=== PATIENT | male | born 1990 | race Two or more races ===

== ENCOUNTER 2017-01-09 18:43 | Emergency (ER) | payer MEDICAID ==
[~2017-01-09] VITALS: Ht 167.6 cm; Wt 85.7 kg
--- NOTE | 2017-01-09 19:20 | Emergency Room Report ---
History of Present Illness General Chief Complaint: Upper Extremity Injury Source: Patient Present Illness HPI 26 YO male presents to the ED c/o that a cat attacked him yesterday evening, pt. reports scratches and bites to right wrist, and hand. pt. states swelling and 5/10 pain to right 5th and 4th digits with erythema about the wounds and the hand. pt. states he's been washing wounds frequently, does not know when his last tetanus vaccination was. denies fevers, chills, itching, swelling of the lips or tongue, denies wheezing , rashes or abdominal pain. Denies CP, Palpitations, LOC, AMS, dizziness, Changes in Vision, Sensation, paresthesias, or a sudden severe headache. Allergies: Coded Allergies: No Known Allergies (Unverified , 01/09/17) Patient History Past Medical History: see triage record Past Surgical History: none Pertinent Family History: none Reviewed Nursing Documentation: PMH: Agreed, PSxH: Agreed Review of Systems All Other Systems: negative except mentioned in HPI Physical Exam Vital Signs Date Time Temp Pulse Resp B/P Pulse Ox O2 Delivery O2 Flow Rate FiO2 01/09/17 18:54 98.4 97 18 149/93 99 Room Air Sp02 EP Interpretation: reviewed, normal General Appearance: no apparent distress, alert, GCS 15, non-toxic Head: normocephalic, atraumatic Eyes: bilateral eye PERRL, bilateral eye normal inspection ENT: hearing grossly normal, normal pharynx, no angioedema, normal voice Neck: full range of motion, supple/symm/no masses Respiratory: lungs clear, normal breath sounds, speaking full sentences Cardiovascular #1: regular rate, rhythm, no edema, normal capillary refill Cardiovascular #2: 2+ radial (R), 2+ radial (L) Musculoskeletal: back normal, gait/station normal, normal range of motion, non- tender, swelling, tender - TTP to the lateral right wrist, and the base of the right 5th and 4th digits, erythema noted, increased temperature to palpation, mild swelling, no lymphangitis noted ,no palpable LAD. Neurologic: alert, oriented x3, responsive, motor strength/tone normal, sensory intact, speech normal Psychiatric: judgement/insight normal, memory normal, mood/affect normal Skin: normal color, no rash, warm/dry, well hydrated, laceration - superficial lacerations, and three small puncture wounds less than 0.4cm in size to lateral right wrist, and the base of the right 5th and 4th digits, erythema noted, increased temperature to palpation, mild swelling, no lymphangitis noted ,no palpable LAD. Lymphatic: no adenopathy Medical Decision Making PA Attestation is my supervising Physician whom patient management has been discussed with. Diagnostic Impression: Primary Impression: Cellulitis Qualified Codes: L03.113 - Cellulitis of right upper limb Additional Impression: Cat scratch of hand Qualified Codes: S60.511A - Abrasion of right hand, initial encounter; W55.03XA - Scratched by cat, initial encounter ER Course 26 YO male presents to the ED c/o that a cat attacked him yesterday evening, pt. reports scratches and bites to right wrist, and hand. pt. states swelling and 5/10 pain to right 5th and 4th digits with erythema about the wounds and the hand. pt. states he's been washing wounds frequently, does not know when his last tetanus vaccination was. denies fevers, chills, itching, swelling of the lips or tongue, denies wheezing , rashes or abdominal pain. Denies CP, Palpitations, LOC, AMS, dizziness, Changes in Vision, Sensation, paresthesias, or a sudden severe headache. Ddx considered but are not limited to Cellulitis, rabies, fracture, neurovascular compromise of extremity. Vital signs: are WNL, pt. is afebrile H&PE are most consistent with cat scratch and bite of the right wrist/hand with mild infection. ORDERS: none required at this time, the diagnosis is clinical ED INTERVENTIONS: -Wound cleaning. -Tetanus vaccination is administered. - Augmentin PO DISCHARGE: At this time pt. is stable for d/c to home. Will provide printed patient care instructions, and any necessary prescriptions. Care plan and follow up instructions have been discussed with the patient prior to discharge. * Augmentin TID x 7 days. Last Vital Signs Date Time Temp Pulse Resp B/P Pulse Ox O2 Delivery O2 Flow Rate FiO2 01/09/17 18:54 98.4 97 18 149/93 99 Room Air Disposition: HOME, SELF-CARE Condition: Stable Scripts Ibuprofen* (MOTRIN*) 600 Mg Tablet 600 MG ORAL THREE TIMES A DAY, #30 TAB 0 Refills Prov: Mihaela Sandra 01/09/17 Amoxicillin/Potassium Clav 875-125* (AUGMENTIN 875-125 TABLET*) 1 Each Tablet 1 TAB ORAL TWICE A DAY for 7 Days, #14 TAB Prov: Mihaela Sandra 01/09/17 Patient Instructions: Cellulitis Additional Instructions: Take medications as directed. Follow up with a Primary Care Provider in 3-5 days, even if your symptoms have resolved. --Please review list of primary care clinics, if you do not already have a primary care provider Return sooner to ED if new symptoms occur, or current symptoms become worse. - Please note that this Emergency Department Report was dictated using [employer] pit boss technology software, occasionally this can lead to erroneous entry secondary to interpretation by the dictation equipment. Mihaela Sandra Jan 09, 2017 19:20
[2017-01-09] MEDS ORDERED: Tetanus/Diptheria/Pertussis Vaccine 0.5ml Syr IM ONE (19:30)
[2017-01-09] MEDS ORDERED: IBUPROFEN600 MG ORAL (19:32)
[2017-01-09] MEDS ORDERED: AUGMENTIN 875-1 EAC1 ORAL (19:32)
[2017-01-09 19:48] VITALS: BP_SYST 131; BP_SYST 149; BP_DIAS 88; BP_DIAS 93
== END 2017-01-09 19:50 | disposition home or self-care (01) ==
LOC: EMR 19:28
DX: L03.113 Cellulitis of right upper limb (principal); S60.511A Abrasion of right hand, initial encounter; W55.03XA Scratched by cat, initial encounter; Y93.9 Activity, unspecified; Y92.9 Unspecified place or not applicable; Z23 Encounter for immunization
CPT/HCPCS: 90471; 90715; 96372; 99284

== ENCOUNTER 2018-03-26 15:11 | Emergency (ER) | payer MEDICAID, OTHER ==
[~2018-03-26] VITALS: Ht 165.1 cm; Wt 77.1 kg
[~2018-03-26 15:11] MED LIST: AUGMENTIN 875-1 EAC1 ORAL; IBUPROFEN600 MG ORAL
[2018-03-26 15:23] VITALS: BP 140/99
--- NOTE | 2018-03-26 15:29 | Emergency Room Report ---
History of Present Illness General Chief Complaint: Medication Refill Source: Patient Present Illness HPI 27 year-old male patient presents ER brought in by police for medical clearance for incarceration. Patient reports that his throat is "parched" and that he needs some water. Patient complaining of being thirsty and "gagging" from being thirsty. Reports that he is not taking any food or had any new foods in his diet. Reports history of marijuana use. Denies throwing up. Denies abdominal pain. Reports history of GERD, does not take any medications for GERD , declines all medications. Denies history. denies fever, chest pain, shortness of breath. Allergies: Coded Allergies: No Known Allergies (Unverified , 01/09/17) Patient History Past Medical History: see triage record Reviewed Nursing Documentation: PMH: Agreed; PSxH: Agreed Nursing Documentation-PMH Past Medical History: No Stated History Review of Systems All Other Systems: negative except mentioned in HPI Physical Exam Vital Signs Date Time Temp Pulse Resp B/P (MAP) Pulse Ox O2 Delivery O2 Flow Rate FiO2 03/26/18 15:06 98.4 99 18 140/99 100 Room Air 98.4 Sp02 EP Interpretation: reviewed, normal General Appearance: well appearing, no apparent distress, alert, GCS 15, non- toxic Head: normocephalic, atraumatic Eyes: bilateral eye normal inspection, bilateral eye PERRL ENT: hearing grossly normal, normal pharynx, no angioedema, normal voice, TMs + canals normal, uvula midline, moist mucus membranes Neck: full range of motion Respiratory: lungs clear, normal breath sounds, no rhonchi, no respiratory distress, no accessory muscle use, no wheezing, speaking full sentences, other - no stridor Cardiovascular #1: regular rate, rhythm, no edema Gastrointestinal: non tender, soft, no mass, non-distended, no guarding, no rebound Genitourinary: no CVA tenderness Musculoskeletal: back normal, digits/nails normal, gait/station normal, normal range of motion, non-tender Neurologic: alert, oriented x3, responsive, motor strength/tone normal, sensory intact Skin: no rash Lymphatic: no adenopathy Medical Decision Making PA Attestation Dr. Quinonez is my supervising Physician whom patient management has been discussed with. Diagnostic Impression: Primary Impression: Medical clearance for incarceration ER Course Pt. presents to the ED requesting medical clearance for booking. Multiple differentials considered. Patient Vitals Signs WNL, patient is afebrile. ER COURSE: provide patient with water in the ER. States water helped. Patient talking without difficulty. Patient declined medication for GERD symptoms. PE benign. No skull depression, lungs clear to auscultation, no abdominal TTP. Patient not suicidal or homicidal at this time. Patient in no acute distress, nontoxic appearing, breathing without difficulty. Does not require imaging or labs at this time. ORDERS: none required at this time, the diagnosis is clinical ED INTERVENTIONS: None required at this time. DISCHARGE: At this time pt. is stable for d/c to police custody. Will provide printed patient care instructions, and any necessary prescriptions. Care plan and follow up instructions have been discussed with the patient prior to discharge - Please note that this Emergency Department Report was dictated using [employer] groundman technology software, occasionally this can lead to erroneous entry secondary to interpretation by the dictation equipment. Last Vital Signs Date Time Temp Pulse Resp B/P (MAP) Pulse Ox O2 Delivery O2 Flow Rate FiO2 03/26/18 15:23 98.4 77 18 140/99 100 Room Air 98.4 Disposition: HOME, SELF-CARE Condition: Stable Patient Instructions: Food Choices for Gastroesophageal Reflux Disease, Adult, [id number] Additional Instructions: Followup with primary care provider in 3 -5 days. Take medications as directed. Patient questions asked and answered. ER precautions given, patient instructed to return to ER immediately for any new or worsening of symptoms. Tutu Hughes Mar 26, 2018 15:29
[2018-03-26 15:46] VITALS: BP 135/95
== END 2018-03-26 15:47 | disposition home or self-care (01) ==
LOC: EDBD 15:11 → EMR 15:30
DX: Z02.89 Encounter for other administrative examinations (principal)
CPT/HCPCS: 99282

== ENCOUNTER 2020-03-01 21:00 | Emergency (ER) | payer MEDICAID, OTHER ==
[~2020-03-01] VITALS: Ht 167.6 cm; Wt 81.6 kg
[2020-03-01 21:05] VITALS: BP 132/86
--- NOTE | 2020-03-01 21:11 | Emergency Room Report ---
History of Present Illness General Chief Complaint: Upper Extremity Injury Source: Patient Present Illness HPI Disclaimer: Please note that this report is being documented using DRAGON technology. This can lead to erroneous entry secondary to incorrect interpretation by the dictating instrument. HPI: 29-year-old [id number] male presents for evaluation of right hand injury. 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 Reports pain with flexion and extension. States he male also fallen on but cannot remember. No prior history of hand injury or repair. Denies pain in the wrist, elbow or shoulder other injury. Allergies: Coded Allergies: No Known Allergies (Unverified , 01/09/17) COVID-19 Screening Contact w/high risk pt: No Experienced COVID-19 symptoms?: No COVID-19 Testing performed CROP FARM HELPER: No Nursing Documentation-PMH History Of Psychiatric Problem: Yes Review of Systems All Other Systems: negative except mentioned in HPI Physical Exam Vital Signs Date Time Temp Pulse Resp B/P (MAP) Pulse Ox O2 Delivery O2 Flow Rate FiO2 03/01/20 21:03 98.4 86 18 132/86 (101) 97 Room Air General: Awake and alert, no acute distress HEENT: NC/AT. EOMI. Resp: Normal work of breathing Skin: Small abrasion on the volar aspect of the right hand just at the base of the MCP J of the middle finger. No active bleeding, no surrounding edema or erythema. MSK: Normal tone and bulk. Moving all extremities. There is swelling over the dorsum over the dorsal aspect and volar aspect of the right hand. Tender to palpation. Difficulty with flexion extension at the digits. Neuro: Awake and alert. Mentating appropriately Medical Decision Making Homeless Attestation Patient has been medically screened and is stable for outpatient follow up Diagnostic Impression: Primary Impression: Hand injury ER Course Is a 29-year-old male presenting for evaluation of right hand injury. Concern for fracture, dislocation and infection. Patient appears to have a superficial abrasion that will be cleaned and tetanus will be updated. X-ray of the hand ordered but no obvious fracture or dislocation was identified. No significant signs of infection however as the patient may have had a puncture wound from a branch or other yard clippings will start on Keflex as a precaution. When I went to discuss x-ray findings and plan with the patient he became significantly agitated insisting that his hand was either broken or ligaments were torn. I explained the patient that this was unlikely given his x-ray studies and the mechanism of injury at which point he became aggressive and abusive. Security intervened and the patient was escorted out of the emergency department. He was provided with information on shelters, paper prescriptions for his antibiotics but refused to sign discharge paperwork. Other X-Ray Diagnostic Results Other X-Ray Diagnostic Results : X-Ray ordered: Right hand # of Views/Limited Vs Complete: Complete Indication: Pain EP Interpretation: Yes Interpretation: no dislocation, no fractures Impression: No acute disease Electronically Signed by: Electronically signed by Dr. James Alexander Last Vital Signs Date Time Temp Pulse Resp B/P (MAP) Pulse Ox O2 Delivery O2 Flow Rate FiO2 03/01/20 21:03 98.4 86 18 132/86 (101) 97 Room Air Disposition: HOME, SELF-CARE Condition: Stable Scripts Ibuprofen* (MOTRIN*) 600 Mg Tablet 600 MG ORAL Q6H PRN for For Pain, #30 TAB 0 Refills Prov: James Alexander MD 03/01/20 Cephalexin* (KEFLEX*) 500 Mg Capsule 500 MG ORAL EVERY 12 HOURS, #14 CAP 0 Refills Prov: James Alexander MD 03/01/20 James Alexander MD Mar 01, 2020 21:11
[2020-03-01] MEDS ORDERED: HYDROcodone/Acetamin 7.5/325 tab ORAL ONE (21:15)
[2020-03-01] MEDS ORDERED: Tetanus/Diptheria/Pertussis IM ONE (21:15)
[2020-03-01] MEDS ORDERED: IBUPROFEN600 M1 ORAL (21:39)
[2020-03-01] MEDS ORDERED: CEPHALEXIN500 MG ORAL (21:39)
[2020-03-01 21:45] VITALS: BP 132/86
--- NOTE | 2020-03-02 09:34 | Diagnostic Imaging Report ---
Indication: Hand pain status post injury Technique: 3 views of the right hand Comparison: None Findings: Limited evaluation of the patient's ring was not removed. Within these limitations: Bone mineralization within normal limits. No acute fracture or dislocation is identified. No radiographically appreciable soft tissue defect/laceration appreciated. No retained foreign body. Impression: Limited exam as above. No acute fracture or dislocation.
== END 2020-03-01 21:45 | disposition home or self-care (01) ==
LOC: EMR 21:13
DX: S69.91XA Unspecified injury of right wrist, hand and finger(s), initial encounter (principal); W22.8XXA Striking against or struck by other objects, initial encounter; Y92.9 Unspecified place or not applicable
CPT/HCPCS: 73130; 90471; 90715; Z7502; 99283

== ENCOUNTER 2020-03-15 05:13 | Emergency (ER) | payer MEDICAID ==
[~2020-03-15] VITALS: Ht 170.2 cm; Wt 72.6 kg
[~2020-03-15 05:13] MED LIST changes: +CEPHALEXIN500 MG ORAL; +IBUPROFEN600 M1 ORAL
--- NOTE | 2020-03-15 05:15 | NUR ---
pt not in waiting room; will continue to montior
[2020-03-15 05:34] VITALS: BP 126/80
--- NOTE | 2020-03-15 05:34 | NUR ---
ED Nurse Note: Walk-in patient with complaints of right hand injury and cotinued pain. 8/10 on pain scale. Patient admits to drinking tonight and admits to being drunk.
[2020-03-15] MEDS ORDERED: Clindamycin 150mg cap ORAL ONE (05:45)
[2020-03-15] MEDS ORDERED: Neosporin Oint Ud Pkt TOPIC ONE (05:45)
[2020-03-15] MEDS ORDERED: CLINDAMYCIN HC300 MG ORAL (05:48)
--- NOTE | 2020-03-15 05:48 | Emergency Room Report ---
History of Present Illness General Chief Complaint: Laceration Source: Patient Present Illness HPI This a 29-year-old male who is right-hand dominant. He presents with chief complaint of head injury. He has laceration to his right hand. This occur several days ago. He claimed that he was here at the beginning of the month for the same thing and was told that nothing was wrong with that. He had previous surgery in that hand. He was vague on what kind of injury had a last few days. Denies any pain. He appeared to be intoxicated. Allergies: Coded Allergies: No Known Allergies (Unverified , 01/09/17) COVID-19 Screening Contact w/high risk pt: No Experienced COVID-19 symptoms?: No COVID-19 Testing performed CHANNEL DEVELOPMENT MANAGER: No Patient History Past Medical History: see triage record, old chart reviewed Past Surgical History: none Pertinent Family History: none Social History: Reports: drug use Immunizations: other Reviewed Nursing Documentation: PMH: Agreed; PSxH: Agreed Nursing Documentation-PMH Past Medical History: No Stated History Review of Systems Eye: Denies: eye pain, blurred vision ENT: Denies: ear pain, nose congestion, throat swelling Respiratory: Denies: cough, shortness of breath Cardiovascular: Denies: chest pain, palpitations Gastrointestinal: Denies: abdominal pain, diarrhea, nausea, vomiting Musculoskeletal: Denies: back pain, joint pain Skin: Denies: rash Neurological: Denies: headache, numbness Endocrine: Denies: increased thirst, increased urine Hematologic/Lymphatic: Denies: easy bruising All Other Systems: negative except mentioned in HPI Physical Exam Vital Signs Date Time Temp Pulse Resp B/P (MAP) Pulse Ox O2 Delivery O2 Flow Rate FiO2 03/15/20 05:34 98.2 108 16 126/80 (95) 98 Room Air Vitals normal Sp02 EP Interpretation: reviewed, normal General Appearance: well appearing, no apparent distress, alert, other - Intoxicated Head: normocephalic, atraumatic Eyes: bilateral eye PERRL, bilateral eye EOMI ENT: hearing grossly normal, normal pharynx Neck: full range of motion, supple, no meningismus Respiratory: chest non-tender, lungs clear, normal breath sounds Cardiovascular #1: regular rate, rhythm, no murmur Gastrointestinal: normal bowel sounds, non tender, no mass, no organomegaly, no bruit, non-distended Musculoskeletal: back normal, normal range of motion, gait/station normal, other - Right hand: On the dorsal surface of his hand between the third and fourth MCP joint there is a 3 cm wound. There is some mild erythema. His hand is very dirty with dirt. Psychiatric: mood/affect normal Medical Decision Making Diagnostic Impression: Primary Impression: Laceration Additional Impressions: Cellulitis of hand, right Substance abuse ER Course Patient with a laceration to his right hand. This is an old laceration. It may have cellulitis. I did not see any abscess. No tendon involvement. Laceration is very old. Told patient that it needs to heal secondarily. Too late for suturing. Last Vital Signs Date Time Temp Pulse Resp B/P (MAP) Pulse Ox O2 Delivery O2 Flow Rate FiO2 03/15/20 05:34 98.2 108 16 126/80 (95) 98 Room Air Status: improved Disposition: HOME, SELF-CARE Condition: Stable Scripts Clindamycin Hcl (CLINDAMYCIN HCL) 300 Mg Capsule 300 MG ORAL THREE TIMES A DAY, #21 CAP Prov: Jp Espana MD 03/15/20 Additional Instructions: Keep wound clean. Clean with hydroperoxide and apply antibiotic ointment. Follow-up in 2 to 3 days for recheck. Take your antibiotics. Return if worse. Jp Espana MD Mar 15, 2020 05:48
[2020-03-15] MEDS ORDERED: Acetaminophen 500mg (ES) tab ORAL ONE (06:15)
--- NOTE | 2020-03-15 06:16 | NUR ---
ER DISCHARGE NOTE: Patient is cleared to be discharged per ERMD. Patient is A&Ox4, ambulatory with steady gait and in stable condition. Patient departed with all belongings to bus.
[2020-03-15 06:17] VITALS: BP 126/80
== END 2020-03-15 06:17 | disposition home or self-care (01) ==
LOC: EMR 05:53
DX: S61.411A Laceration without foreign body of right hand, initial encounter (principal); L03.113 Cellulitis of right upper limb; F19.10 Other psychoactive substance abuse, uncomplicated; X58.XXXA Exposure to other specified factors, initial encounter; Y92.9 Unspecified place or not applicable
CPT/HCPCS: 99282

== ENCOUNTER 2020-05-25 13:22 | Emergency (ER) | payer MEDICAID ==
[~2020-05-25] VITALS: Ht 167.6 cm; Wt 86.6 kg
[~2020-05-25 13:22] MED LIST changes: +CLINDAMYCIN HC300 MG ORAL
--- NOTE | 2020-05-25 13:48 | NUR ---
ED Nurse Note: Pt walked in from home c/o spider bite with abscess x 2 days on the buttocks. Pt denies any other symptoms. Respirations even and unlabored on room air. Vitals stable as documented. A+Ox4, speaking in complete sentences.
[2020-05-25 13:49] VITALS: BP 123/76
--- NOTE | 2020-05-25 15:11 | Emergency Room Report ---
History of Present Illness General Chief Complaint: Skin Rash/Abscess Source: Patient Present Illness HPI 29-year-old male presents to the emergency department planing of 9 out of 10 severity pain, swelling, induration and tenderness to the lower left buttock x2 to 3 days. Patient reports his symptoms are from a spider bite. Patient reports recently having a spider bite on the other buttock that required in cision and drainage. Patient reports that he feels that the spider bite was progressing and he did not want it to get as bad as last time. He denies fevers or chills. He reports he is up-to-date with vaccinations. No other aggravating or relieving factors at this time. Allergies: Coded Allergies: No Known Allergies (Unverified , 01/09/17) COVID-19 Screening Contact w/high risk pt: No Experienced COVID-19 symptoms?: No COVID-19 Testing performed CENTER CONSULTANT: No Patient History Past Medical History: see triage record Past Surgical History: none Pertinent Family History: none Immunizations: UTD Reviewed Nursing Documentation: PMH: Agreed; PSxH: Agreed Nursing Documentation-PMH Past Medical History: No Stated History Review of Systems All Other Systems: negative except mentioned in HPI Physical Exam Vital Signs Date Time Temp Pulse Resp B/P (MAP) Pulse Ox O2 Delivery O2 Flow Rate FiO2 05/25/20 13:35 98.1 117 20 112/68 (83) 96 Room Air Sp02 EP Interpretation: reviewed, normal General Appearance: no apparent distress, alert, GCS 15, non-toxic Head: normocephalic, atraumatic Eyes: bilateral eye normal inspection, bilateral eye PERRL ENT: hearing grossly normal, normal voice Neck: full range of motion Respiratory: lungs clear, normal breath sounds, speaking full sentences Cardiovascular #1: regular rate, rhythm Musculoskeletal: normal range of motion, gait/station normal, non-tender Neurologic: alert, motor strength/tone normal, oriented x3, sensory intact, responsive, speech normal Psychiatric: judgement/insight normal Skin: other - Left lower buttock abscess that is 1 cm in diameter. induration, no palpable fluctuance. Lymphatic: no adenopathy Procedures Incision and Drainage Incision and Drainage : Consent: Verbal Site: Left Lower buttock Blade Size: 11 I & D Procedure: betadine prep, sterile drapes applied, sterile dressing applied Wound Location: other - Left lower buttock Wound's Depth, Shape: linear Wound Length (cm): 1 Wound Explored: contaminated - scant amt. of purulent fluid expressed along with some blood. Irrigated w/ Saline (ccs): 20 Anesthesia: Lidocaine w/ Epi Volume Anesthetic (ccs): 2 Splint Applied?: No Sling Applied?: No Patient Tolerated: Well Complications: None Medical Decision Making PA Attestation Dr. Quinonez is my supervising Physician whom patient management has been discussed with. Homeless Attestation I, The treating provider, Mihaela LOPEZ, has assessed and agrees that patient is medically stable for discharge to an outpatient disposition. Diagnostic Impression: Primary Impression: Abscess ER Course 29-year-old male presents to the emergency department planing of 9 out of 10 severity pain, swelling, induration and tenderness to the lower left buttock x2 to 3 days. Patient reports his symptoms are from a spider bite. Patient repo rts recently having a spider bite on the other buttock that required incision and drainage. Patient reports that he feels that the spider bite was progressing and he did not want it to get as bad as last time. He denies fevers or chills. He reports he is up-to-date with vaccinations. No other aggravating or relieving factors at this time. Ddx considered but are not limited to cellulitis, abscess, cystic acne, necrotizing fasciitis, insect bite. Vital signs: are WNL, pt. is afebrile H&PE are most consistent with Left lower buttock abscess that is 1 cm in diameter. induration, no palpable fluctuance. ORDERS: none required at this time, the diagnosis is clinical ED INTERVENTIONS: -I & D. -Bacitracin and sterile dressing was applied by the SALES CENTER ASSOCIATE: At this time pt. is stable for d/c to home. Will provide printed patient care instructions, and any necessary prescriptions. Care plan and follow up instructions have been discussed with the patient prior to discharge. Last Vital Signs Date Time Temp Pulse Resp B/P (MAP) Pulse Ox O2 Delivery O2 Flow Rate FiO2 05/25/20 13:49 98.4 79 20 123/76 97 Room Air Status: improved Disposition: HOME, SELF-CARE Condition: Stable Scripts Mupirocin* (MUPIROCIN*) 22 Gm Oint...g. 1 APPLIC TOPIC THREE TIMES A DAY, #22 GM Prov: Mihaela Sandra 05/25/20 Trimethoprim/Sulfamethoxazole 160/800* (BACTRIM DS TABLET*) 1 Each Tablet 1 TAB ORAL DAILY for 7 Days, #14 TAB Prov: Mihaela Sandra 05/25/20 Cephalexin* (KEFLEX*) 500 Mg Capsule 500 MG ORAL EVERY 12 HOURS for 7 Days, #14 CAP 0 Refills Prov: Mihaela Sandra 05/25/20 Hydrocodone Bit/Acetaminophen 5-325* (NORCO 5-325 TABLET*) 1 Each Tablet 1 TAB ORAL Q6H PRN for FOR PAIN, #12 TAB 0 Refills Prov: Mihaela Sandra 05/25/20 Patient Instructions: Abscess Additional Instructions: Take medications as directed. Do not drink alcohol, drive, or operate heavy machinery while taking [place] as this may cause drowsiness. Follow up with a Primary Care Provider in 3-5 days, even if your symptoms have resolved. --Please review list of primary care clinics, if you do not already have a primary care provider Return sooner to ED if new symptoms occur, or current symptoms become worse. - Please note that this Emergency Department Report was dictated using [employer] room supervisor technology software, occasionally this can lead to erroneous entry secondary to interpretation by the dictation equipment. Mihaela Sandra May 25, 2020 15:11
[2020-05-25] MEDS ORDERED: BACTRIM DS TAB1 EAC1 ORAL (15:13)
[2020-05-25] MEDS ORDERED: MUPIROCIN22 GM TOPIC (15:13)
[2020-05-25] MEDS ORDERED: CEPHALEXIN500 MG ORAL (15:13)
[2020-05-25] MEDS ORDERED: NORCO 5-325 TA1 EAC1 ORAL (15:13)
[2020-05-25] MEDS ORDERED: Bacitracin Oint UD TOPIC ONE (15:15)
[2020-05-25 15:48] VITALS: BP 136/72
--- NOTE | 2020-05-25 15:48 | NUR ---
Homeless Discharge: Patient is being discharged from medical care. Awake, alert and oriented x4. After care instructions, including referral to community resources were given. Patient verbalized understanding of After care instructions; at this time patient does not request medications, equipment or placement. Food and drinks supplied to patent. Patient signed patient consent in the medical record for patient destination upon discharge. All medical devices such as IV and ID band were removed. Patient ambulated out with all personal belongings with steady gait. Pt declined to disclose discharge location.
== END 2020-05-25 15:48 | disposition home or self-care (01) ==
LOC: EMR 15:08
DX: L02.31 Cutaneous abscess of buttock (principal)
CPT/HCPCS: 10060; Z7502; 99283

== ENCOUNTER → 2020-06-29 | Emergency (ER) | payer MEDICAID ==
[~2020-06-29] VITALS: Ht 167.6 cm; Wt 68.0 kg
[~2020-06-29] MED LIST changes: +BACTRIM DS TAB1 EAC1 ORAL; +MUPIROCIN22 GM TOPIC; +NORCO 5-325 TA1 EAC1 ORAL
--- NOTE | 2020-06-29 13:20 | NUR ---
ED Nurse Note: Patient from street and walked in due to "spider bites" on bilateral legs for days. a/ox4, nad noted, ambulatory, denies pain, vss.
[2020-06-29 13:21] VITALS: BP 149/81
--- NOTE | 2020-06-29 13:53 | Emergency Room Report ---
History of Present Illness General Chief Complaint: Skin Rash/Abscess Source: Patient Present Illness HPI 29-year-old male presents to the emergency department complaining of multiple insect bites that are infected on the bilateral lower extremities progressive x1 week. Patient reports initial itching. He does report some pustules. Patient reports 5 out of 10 severity pain. Patient states he is up-to-date with his tetanus vaccine. Patient denies fevers or chills. Patient reports history of infected bug bites in the past. Pt. denies fevers, chills or swollen tender lymph nodes. Denies lesions/rashes elsewhere on the body. He denies swelling of the lips, tongue , throat or airway. Denies wheezing, or shortness of breath. He denies blisters, oral lesions, or sloughing of the skin. Allergies: Coded Allergies: No Known Allergies (Unverified , 01/09/17) COVID-19 Screening Contact w/high risk pt: No Experienced COVID-19 symptoms?: No COVID-19 Testing performed THREAD MARKER: No Patient History Past Medical History: see triage record Past Surgical History: none Pertinent Family History: none Social History: Reports: smoking Immunizations: UTD Reviewed Nursing Documentation: PMH: Agreed; PSxH: Agreed Nursing Documentation-PMH History Of Psychiatric Problem: Yes Review of Systems All Other Systems: negative except mentioned in HPI Physical Exam Vital Signs Date Time Temp Pulse Resp B/P (MAP) Pulse Ox O2 Delivery O2 Flow Rate FiO2 06/29/20 13:09 98.8 91 18 149/81 (103) 95 Room Air Sp02 EP Interpretation: reviewed, normal General Appearance: no apparent distress, alert, GCS 15, non-toxic Head: normocephalic, atraumatic Eyes: bilateral eye normal inspection, bilateral eye PERRL ENT: hearing grossly normal, normal voice Neck: full range of motion, other - NO stridor Respiratory: lungs clear, normal breath sounds, no wheezing, speaking full sentences Cardiovascular #1: regular rate, rhythm, no edema Musculoskeletal: back normal, normal range of motion, gait/station normal, non- tender Neurologic: alert, motor strength/tone normal, oriented x3, sensory intact, responsive, speech normal Psychiatric: judgement/insight normal Skin: rash - multiple discrete pustules on the bilateral LE's. No blisters or vesicles, No sloughing of the skin, some mild surrounding ST erythema and warmth about pustules. Lymphatic: no adenopathy Medical Decision Making PA Attestation Dr. Ray is my supervising Physician whom patient management has been discussed with. Diagnostic Impression: Primary Impression: Insect bites of multiple sites, infected ER Course 29-year-old male presents to the emergency department complaining of multiple insect bites that are infected on the bilateral lower extremities progressive x1 week. Patient reports initial itching. He does report some pustules. Patient reports 5 out of 10 severity pain. Patient states he is up-to-date with his tetanus vaccine. Patient denies fevers or chills. Patient reports history of infected bug bites in the past. Pt. denies fevers, chills or swollen tender lymph nodes. Denies lesions/rashes elsewhere on the body. He denies swelling of the lips, tongue , throat or airway. Denies wheezing, or shortness of breath. He denies blisters, oral lesions, or sloughing of the skin. Ddx considered but are not limited to cellulitis, Necrotizing fasciitis, allergic reaction, burn, dermatitis, fracture, d/L, gout, paronichia, eponichia, ingrown toe nail, Vital signs: are WNL, pt. is afebrile H&PE are most consistent with MRSA ST infection.- multiple discrete pustules on the bilateral LE's. No blisters or vesicles, No sloughing of the skin, some mild surrounding ST erythema and warmth about pustules. ORDERS: none required at this time, the diagnosis is clinical ED INTERVENTIONS: None required at this time. DISCHARGE: At this time pt. is stable for d/c to home. Will provide printed patient care instructions, and any necessary prescriptions. Care plan and follow up instructions have been discussed with the patient prior to discharge. Last Vital Signs Date Time Temp Pulse Resp B/P (MAP) Pulse Ox O2 Delivery O2 Flow Rate FiO2 06/29/20 13:21 98.8 18 149/81 95 Room Air 06/29/20 13:09 91 Disposition: HOME, SELF-CARE Condition: Stable Scripts Ibuprofen* (MOTRIN*) 600 Mg Tablet 600 MG ORAL THREE TIMES A DAY, #30 TAB Prov: Mihaela Sandra 06/29/20 Mupirocin* (MUPIROCIN*) 22 Gm Oint...g. 1 APPLIC TOPIC THREE TIMES A DAY, #22 GM Prov: Mihaela Sandra 06/29/20 Cephalexin* (KEFLEX*) 500 Mg Capsule 500 MG ORAL EVERY 12 HOURS, #14 CAP 0 Refills Prov: Mihaela Sandra 06/29/20 Trimethoprim/Sulfamethoxazole 160/800* (BACTRIM DS TABLET*) 1 Each Tablet 1 TAB ORAL TWICE A DAY for 7 Days, #14 TAB Prov: Mihaela Sandra 06/29/20 Patient Instructions: Cellulitis, Erga-qs-Hecf Additional Instructions: Take medications as directed. Follow up with a Primary Care Provider in 3-5 days, even if your symptoms have resolved. Return sooner to ED if new symptoms occur, or current symptoms become worse. - Please note that this Emergency Department Report was dictated using [employer] associate technology software, occasionally this can lead to erroneous entry secondary to interpretation by the dictation equipment. Mihaela Sandra Jun 29, 2020 13:53
[2020-06-29 14:02] VITALS: BP 149/81
--- NOTE | 2020-06-29 14:02 | NUR ---
ED Nurse Note: Patient cleared by health care Provider for discharge. DC instructions/prescription was given and explained to pt and verbalized understanding of teachings. All medical deviecs such as ID band removed. Pt is AAO x4, ambulatory and left with all personal belongings.
== END | disposition home or self-care (01) ==
LOC: EMR 13:00
DX: S80.862A Insect bite (nonvenomous), left lower leg, initial encounter (principal); S80.861A Insect bite (nonvenomous), right lower leg, initial encounter; W57.XXXA Bitten or stung by nonvenomous insect and other nonvenomous arthropods, initial encounter; Y93.9 Activity, unspecified; Y92.9 Unspecified place or not applicable; F17.200 Nicotine dependence, unspecified, uncomplicated
CPT/HCPCS: 99282